=== PATIENT | female | born 1975 | race Caucasian/White ===

== ENCOUNTER 2018-01-28 18:56 | Emergency (ER) | payer SELFPAY ==
[~2018-01-28] VITALS: Ht 170.2 cm; Wt 89.4 kg
[2018-01-28 20:12] VITALS: BP 138/87
== END 2018-01-28 20:16 | disposition home or self-care (01) ==
LOC: EME 18:56
DX: F41.9 Anxiety disorder, unspecified (principal); F17.200 Nicotine dependence, unspecified, uncomplicated
CPT/HCPCS: 93005; 99281; 99284